=== PATIENT | male | born 1950 | race Caucasian/White ===

== ENCOUNTER 2019-06-25 05:27 | Inpatient (IN) | payer MEDICARE ==
[2019-06-25] MEDS ORDERED: Nitroglycerin 0.4 MG TAB 1 EACH ONE (05:57)
[2019-06-25] MEDS ORDERED: Nitroglycerin 2% Ointment 1 INCH/1 GM Packet ONE (05:57)
[2019-06-25] MEDS ORDERED: Nitroglycerin 0.4 MG TAB (25 Tab Bottle) ONE (07:34)
[2019-06-25 07:47] VITALS: BMI 23.5
[2019-06-25 08:57] LABS: Troponin I 0.057 ng/mL (< 0.028)
[2019-06-25] MEDS ORDERED: Acetaminophen 325 MG TAB PO PRN (09:10)
[2019-06-25] MEDS ORDERED: Pantoprazole 40 MG VIAL IVP SCH (09:30)
[2019-06-25] MEDS: Morphine 4 MG/ML VIAL SLOW IVP PRN ×3 (09:30→21:06)
[2019-06-25] MEDS ORDERED: hydrALAZINE 20 MG/ML VIAL SLOW IVP PRN (09:56)
[2019-06-25 10:14] LABS: Cardiac Risk 6.1 (Less than 4.5)
[2019-06-25] MEDS ORDERED: Lisinopril 20 MG TAB PO SCH (10:30)
[2019-06-25] MEDS ORDERED: Enoxaparin Sodium 80 MG/0.8 ML SYRINGE SC SCH (10:55)
[2019-06-25] MEDS ORDERED: Communication Order-Pharmacy FS SCH (11:00)
[2019-06-25 11:24] LABS: Hemoglobin A1c 6.1 % (4.0-6.0)
[2019-06-25] MEDS: Fentanyl 100 MCG/2 ML VIAL SLOW IVP PRN ×2 (12:11→18:36)
--- NOTE | 2019-06-25 12:36 | CON ---
DATE OF CONSULTATION: 06/25/2019 REASON FOR CONSULTATION: Acute coronary syndrome, unstable angina. HISTORY OF PRESENT ILLNESS: Mr. Martin is a gentleman with a long history of chest pain and pressure. He says on a very frequent basis. He has anginal chest pains at rest, which he can usually get to go away taking medication. Last night, however, he had the pain, it did not seem to want to go away, came here to the emergency room. This is a longstanding problem, he tells me. The patient otherwise states he had stents placed in one coronary artery at least 2 stents "overlapping." He does not know the vessel or did not tell me which vessel he thinks it is, but he said it was only done in one vessel, that was in [facility]. He said he had a cardiac catheterization done, but it has been many years since that was done. He has not seen a office clin asst in many years. The patient is not taking statins. He thinks they cause diabetes. He does not take aspirin as he said that makes him bruised too much. He continues to smoke daily one after one pack cigarettes per day, he tells me. MEDICATIONS: Nitroglycerin and isosorbide. ALLERGIES: OXYCODONE, NALOXONE, PENTAZOCINE. SOCIAL HISTORY: He continues to smoke. REVIEW OF SYSTEMS: CONSTITUTIONAL: No significant weight gain or loss. VISION: No changes. HEARING: No changes. PULMONARY: No cough or wheezing. GASTROINTESTINAL: No nausea, vomiting, or diarrhea. SKIN: No rashes. FAMILY HISTORY: Noncontributory. PHYSICAL EXAMINATION: GENERAL: This is a 68-year-old thin gentleman, states he still has some mild discomfort in his chest, but it is improved. VITAL SIGNS: Blood pressure is 170/90, pulse 68 and regular. LUNGS: Clear. CARDIAC: Normal S1, normal S2. ABDOMEN: Soft, nontender. EXTREMITIES: Warm and dry. No clubbing or cyanosis. Good edema. Good peripheral pulses in his feet. PERTINENT LABORATORY DATA: LDL cholesterol is 133. Troponin was less than 0.010, but the followup is 0.057. EKG shows no acute changes. ASSESSMENT AND PLAN: 1. Acute coronary syndrome, unstable angina. 2. Continue smoking. 3. Hypercholesterolemia, not on statins. 4. Coronary artery disease, not on aspirin. 5. Previous stent implantation. 6. Long history of smoking, but continues to smoke. Not taking aspirin "because it makes him bruised too much". Discussed with this gentleman in all likely he probably has multivessel coronary artery disease, may well need coronary artery bypass grafting. The patient is resistant to take statins, he is so far not agreed to do so. He does not indicate that he would even be willing to take long-term anti-platelet drugs. It is unclear at this point. We will reassess this with him. The patient may need surgical therapy. We will give subcutaneous Lovenox, HERMILO inhibitors, and statins as he will take them, but tentatively planned cardiac catheterization Thursday morning. Discussed risk of stroke, heart attack, loss of blood supply to leg or kidney, vessel perforation, stent thrombosis, stent restenosis. The patient understands well and agrees to proceed. He says he would be amenable to bypass surgery if that is indicated. Job ID: [id number]
--- NOTE | 2019-06-25 12:48 | CT ---
CT PULMONARY ANGIOGRAM WITH IV CONTRAST AND 3D POST PROCESSING: HISTORY: Chest pain. Elevated D-dimer. FINDINGS: There is good contrast opacification of the pulmonary arterial vasculature to suggest pulmonary embol ism. The thoracic aorta is well opacified without aneurysm or dissection. No pleural or pericardial effusions are seen. No pneumothoraces or focal areas of consolidation are i dentified. Chronic changes are seen with basilar dominance. Degenerative changes are present in the s pine. IMPRESSION: No CT evidence of pulmonary embolism. POS: BILLIE
--- NOTE | 2019-06-25 17:05 | HP ---
CHIEF COMPLAINT: Chest pain. HISTORY OF PRESENT ILLNESS: The patient is a 68-year-old male with history of CAD, status post 3 stents back in 2006, who presents to the hospital with complaints of chest pain on and off for the past few days. The patient stated that his chest pain occurs after working and it is a burning sensation that radiates down his both arms. The patient states that normally he takes either nitro or isosorbide, which helps relieve his pain. However, at this time, he had no pain relief, so he came into the ER for further evaluation. The patient denies any fevers or chills, any nausea, vomiting, or diarrhea. He has not had any recent studies at this facility at the [place]. PAST MEDICAL HISTORY: 1. He has a history of ulcer. 2. Liver fibrosis, unclear. 3. Skin cancer. 4. Hypercholesteremia. 5. CAD. PAST SURGICAL HISTORY: Appendectomy, cholecystectomy, and skin cancer removal. SOCIAL HISTORY: He continues to smoke a pack a day. No alcohol use. No drug use. He is a full code. Lives with his family. FAMILY HISTORY: Denies any history of heart disease. ALLERGIES: NALOXONE AND OXYCODONE AND PENTAZOCINE. MEDICATIONS: He takes only isosorbide, no aspirin, no statin. REVIEW OF SYSTEMS: All negative except for the ones mentioned above in the HPI. PHYSICAL EXAMINATION: VITAL SIGNS: As of the following; temperature of 98.1, pulse 67, respiratory rate 20, oxygen saturation 97% on room air, and blood pressure 126/65. GENERAL: He is awake, alert, and oriented x3. Does not appear in distress. HEENT: Normocephalic, atraumatic. Pupils are equal reactive to light. NECK: No lymphadenopathy noted. LUNGS: Clear to auscultation. No rhonchi or wheezes noted. CARDIOVASCULAR: S1 and S2 present. No murmurs, rubs, or gallops. ABDOMEN: Soft and nontender. Bowel sounds are present x2. EXTREMITIES: No edema. Pedal pulses are present x2. NEURO: No focal deficits noted. SKIN: No cuts, lesions, or bruises noted. He does have significant tattoo all around. LABORATORY RESULTS: As of the following; his D-dimer was high as 0.63. Chemistry, hemoglobin A1c of 6.1. Triglycerides of 187, cholesterol of 206, LDL of 133, and HDL of 34. His BUN was 13, creatinine of 0.88, sodium of 139, and potassium of 4.4. Troponin initially was negative, then trended up to the indeterminate range. EKG did not have some nonspecific T-wave changes. Hematology; WBCs of 14.7, hemoglobin of 16.7, hematocrit of 47.9, and platelets of 202. IMAGING DATA: Chest x-ray, no acute abnormalities. ASSESSMENT AND PLAN: The patient is a 68-year-old male, who presents to the hospital with chest pain. 1. Chest pain, possibly secondary to unstable angina versus non-ST elevation myocardial infarction. We will trend his troponins and Cardiology has been consulted. The patient will need possible cardiac cath versus stress test. However, given his symptoms and he has had no workup for a very long time, I believe cardiac cath is inappropriate. We will put the patient on aspirin and statin. Also subcu Lovenox and continue to monitor. 2. Hypertension. When the patient came into the hospital, his blood pressure was in the 170s. I will start him on a low-dose beta-dylon and lisinopril and continue to monitor. 3. Coronary artery disease. Again, the patient will be continued on his aspirin and Plavix. 4. Deep venous thrombosis prophylaxis. We will put the patient on SCDs since he is already on Lovenox. Job ID: [id number]
[2019-06-25] MEDS: Atorvastatin Calcium 40 MG TAB PO SCH (21:03)
[2019-06-25] MEDS: Metoprolol Tartrate 25 MG TAB PO SCH (21:03)
[2019-06-25] MEDS: Pantoprazole 40 MG VIAL IVP SCH (21:04)
[2019-06-25] MEDS: Sodium Chloride 0.9% (PF) 10 ML VIAL FS PRN (21:04)
[2019-06-26] MEDS: Fentanyl 100 MCG/2 ML VIAL SLOW IVP PRN ×2 (00:53→06:40)
[2019-06-26] MEDS: Morphine 4 MG/ML VIAL SLOW IVP PRN ×4 (03:32→17:24)
[2019-06-26 06:16] LABS: #Basophils 0.1 thou/uL (0.0-0.2); #Eosinphils 0.7 thou/uL (0.0-0.7); #Lymphocytes 4.4 thou/uL (1.20-3.40); #Monocytes 0.9 thou/uL (0.11-0.59); %Basophils 1.1 % (0.0-1.0); %Lymphocytes 36.3 % (21.0-51.0); %Monocytes 7.4 % (0.0-10.0); %Neutrophils 49.2 % (42.0-75.0); Hemoglobin 16.9 g/dL (14.0-18.0); Mean Corpuscular Hemoglobin 34.5 pg (27.0-31.0); Mean Corpuscular Volume 98.6 fL (78.0-98.0); Platelet Count 205 thou/uL (130-400); Red Blood Cell (RBC) Count 4.91 mill/uL (4.70-6.10); White Blood Cell (WBC) Count 12.2 thou/uL (4.8-10.8)
[2019-06-26 06:44] LABS: Anion Gap 12 mmol/L (10-20); BUN (Urea Nitrogen) 11 mg/dL (8.4-25.7); Calc. Creatinine Clearance 71 mL/min (70-130); Calcium 9.2 mg/dL (7.8-10.44); Carbon Dioxide 25 mmol/L (23-31); Chloride 102 mmol/L (98-107); Estimated GFR-MDRD 80; Glucose 128 mg/dL (80-115); Potassium 4.4 mmol/L (3.5-5.1); Sodium 135 mmol/L (136-145)
[2019-06-26] MEDS: Pantoprazole 40 MG VIAL IVP SCH ×2 (08:39→22:00)
[2019-06-26] MEDS: Sodium Chloride 0.9% (PF) 10 ML VIAL FS PRN (08:39)
[2019-06-26] MEDS: Lisinopril 20 MG TAB PO SCH (08:43)
[2019-06-26] MEDS: Aspirin 81 mg Enteric Coated Tablet PO SCH (08:43)
[2019-06-26] MEDS: Metoprolol Tartrate 25 MG TAB PO SCH ×2 (08:43→21:59)
[2019-06-26] MEDS ORDERED: Enoxaparin Sodium 40 MG/0.4 ML SYRINGE SC SCH (09:00)
--- NOTE | 2019-06-26 12:54 | PDOC.HOSPP ---
- Subjective Encounter Date: 06/26/19 Encounter Time: 10:00 Subjective: pt up in bed has cp at times describes it at burning. - Objective Vital Signs & Weight: Vital Signs (12 hours) Temp Pulse Resp BP BP Pulse Ox 06/26/19 12:00 99.2 F 60 14 116/60 96 06/26/19 08:43 121/69 06/26/19 08:00 98.0 F 62 12 121/69 95 06/26/19 07:35 95 06/26/19 04:00 98.6 F 56 L 16 97/52 L 92 L Weight Weight 144 lb 11.2 oz I&O: 06/25/19 06/26/19 06/27/19 06:59 06:59 06:59 Intake Total 480 Output Total 400 Balance 80 Result Diagrams: 06/26/19 05:43 06/26/19 05:43 Hospitalist ROS - Review of Systems Respiratory: denies: cough, dry, shortness of breath, hemoptysis, SOB with excertion, pleuritic pain, sputum, wheezing, other Cardiovascular: denies: chest pain, palpitations, orthopnea, paroxysmal noc. dyspnea, edema, light headedness, other Gastrointestinal: denies: nausea, vomiting, abdominal pain, diarrhea, constipation, melena, hematochezia, other - Medication Medications: Active Medications Generic Name Dose Route Start Last Admin Trade Name Freq PRN Reason Stop Dose Admin Aspirin 81 mg 06/26/19 09:00 06/26/19 08:43 Ecotrin PO 81 mg DAILY PEDRO Administration Atorvastatin Calcium 40 mg 06/25/19 21:00 06/25/19 21:03 Lipitor PO 40 mg HS PEDRO Administration Fentanyl 50 mcg 06/25/19 11:17 06/26/19 06:40 Sublimaze SLOW IVP 50 mcg Q6H PRN Administration Pain Lisinopril 20 mg 06/26/19 09:00 06/26/19 08:43 Zestril PO 20 mg DAILY PEDRO Administration Metoprolol Tartrate 25 mg 06/25/19 21:00 06/26/19 08:43 Lopressor PO 25 mg BID PEDRO Administration Morphine Sulfate 4 mg 06/25/19 09:13 06/26/19 08:40 Morphine SLOW IVP 4 mg Q4H PRN Administration Chest Pain Pantoprazole Sodium 40 mg 06/25/19 21:00 06/26/19 08:39 Protonix IVP 40 mg Q12HR PEDRO Administration Sodium Chloride 10 ml 06/25/19 09:22 06/26/19 08:39 Normal Saline Pf FS 10 ml PRN PRN Administration RECONSTITUTION - Exam Neck: negative: supple, symmetric, no JVD, no thyromegaly, no lymphadenopathy, no carotid bruit, JVD Heart: negative: RRR, no murmur, no gallops, no rubs, normal peripheral pulses, irregular, diminshed peripheral pulses, murmur present, II/IV, III/IV Respiratory: negative: CTAB, no wheezes, no rales, no ronchi, normal chest expansion, no tachypnea, normal percussion, rales, rhonchi, tachypneic, wheezes Hosp A/P (1) Unstable angina Status: Acute (2) CAD (coronary artery disease) Code(s): I25.10 - ATHSCL HEART DISEASE OF [place] CORONARY ARTERY W/O ANG PCTRS Status: Acute (3) HTN (hypertension) Code(s): I10 - ESSENTIAL (PRIMARY) HYPERTENSION Status: Acute - Plan pt on asa/statin and lovonx. pt to get a cath in am. pt does not want nitro for his chest pain he feels morphine has been helping him.
[2019-06-26] MEDS: Nitroglycerin 0.4 MG TAB (25 Tab Bottle) SL PRN (21:32)
[2019-06-26] MEDS: Atorvastatin Calcium 40 MG TAB PO SCH (21:59)
[2019-06-27] MEDS: Nitroglycerin 0.4 MG TAB (25 Tab Bottle) SL PRN ×2 (02:53→03:01)
[2019-06-27] MEDS: Lisinopril 20 MG TAB PO SCH (05:54)
[2019-06-27] MEDS: Aspirin 81 mg Enteric Coated Tablet PO SCH (05:54)
[2019-06-27] MEDS: Metoprolol Tartrate 25 MG TAB PO SCH ×2 (05:54→21:16)
[2019-06-27] MEDS: Pantoprazole 40 MG VIAL IVP SCH ×2 (05:55→21:16)
[2019-06-27] MEDS: Sodium Chloride 0.9% 1,000 ML IV SCH (05:56)
[2019-06-27] MEDS: Sodium Chloride 0.9% (PF) 10 ML VIAL FS PRN ×2 (05:56→21:16)
[2019-06-27] MEDS ORDERED: Diazepam 5 MG TAB PO SCH (06:00)
[2019-06-27] MEDS ORDERED: Lidocaine 1% (PF) 30 ML VIAL ONE (07:55)
[2019-06-27] MEDS ORDERED: Fentanyl 100 MCG/2 ML VIAL ONE (08:36)
[2019-06-27] MEDS ORDERED: Midazolam HCl 2 mg/2 ml Vial ONE (08:36)
[2019-06-27] MEDS ORDERED: Nitroglycerin 100MG/250ML BOT 250 ML ONE (08:47)
[2019-06-27] MEDS ORDERED: Nitroglycerin 0.4 MG TAB (25 Tab Bottle) SL PRN (09:25)
[2019-06-27] MEDS ORDERED: Sodium Chloride 0.9% 200 ML IV PRN (09:25)
--- NOTE | 2019-06-27 11:12 | PDOC.HOSPP ---
- Subjective Encounter Date: 06/27/19 Encounter Time: 10:30 Subjective: pt up in bed post cath. - Objective Vital Signs & Weight: Vital Signs (12 hours) Temp Pulse Resp BP BP Pulse Ox 06/27/19 08:00 97.3 F L 56 L 16 110/57 L 95 06/27/19 05:54 121/69 06/27/19 04:00 98.7 F 67 18 99/56 L 94 L 06/26/19 23:28 100.1 F H Weight Weight 144 lb 11.2 oz I&O: 06/26/19 06/27/19 06/28/19 06:59 06:59 06:59 Intake Total 480 Output Total 400 Balance 80 Result Diagrams: 06/26/19 05:43 06/26/19 05:43 Hospitalist ROS - Review of Systems Respiratory: denies: cough, dry, shortness of breath, hemoptysis, SOB with excertion, pleuritic pain, sputum, wheezing, other Cardiovascular: denies: chest pain, palpitations, orthopnea, paroxysmal noc. dyspnea, edema, light headedness, other Gastrointestinal: denies: nausea, vomiting, abdominal pain, diarrhea, constipation, melena, hematochezia, other - Medication Medications: Active Medications Generic Name Dose Route Start Last Admin Trade Name Freq PRN Reason Stop Dose Admin Aspirin 81 mg 06/26/19 09:00 06/27/19 05:54 Ecotrin PO 81 mg DAILY PEDRO Administration Atorvastatin Calcium 40 mg 06/25/19 21:00 06/26/19 21:59 Lipitor PO 40 mg HS PEDRO Administration Fentanyl 50 mcg 06/25/19 11:17 06/26/19 06:40 Sublimaze SLOW IVP 50 mcg Q6H PRN Administration Pain Sodium Chloride 1,000 mls @ 100 mls/hr 06/27/19 06:00 06/27/19 05:56 Normal Saline 0.9% IV 1,000 mls .Q10H PEDRO Administration Lisinopril 20 mg 06/26/19 09:00 06/27/19 05:54 Zestril PO 20 mg DAILY PEDRO Administration Metoprolol Tartrate 25 mg 06/25/19 21:00 06/27/19 05:54 Lopressor PO 25 mg BID PEDRO Administration Morphine Sulfate 4 mg 06/25/19 09:13 06/26/19 17:24 Morphine SLOW IVP 4 mg Q4H PRN Administration Chest Pain Pantoprazole Sodium 40 mg 06/25/19 21:00 06/27/19 05:55 Protonix IVP 40 mg Q12HR PEDRO Administration Sodium Chloride 10 ml 06/25/19 09:22 06/27/19 05:56 Normal Saline Pf FS 10 ml PRN PRN Administration RECONSTITUTION - Exam ENT: negative: normocephalic atraumatic, no oropharyngeal lesions, moist mucosa , dry oral mucosa Neck: supple, symmetric, no JVD, no thyromegaly Heart: RRR, no murmur, no gallops Gastrointestinal: soft, non-tender, non-distended Extremities: no cyanosis Extremities - other findings: pedal pulse present Hosp A/P (1) Unstable angina Status: Acute (2) CAD (coronary artery disease) Code(s): I25.10 - ATHSCL HEART DISEASE OF [place] CORONARY ARTERY W/O ANG PCTRS Status: Acute (3) HTN (hypertension) Code(s): I10 - ESSENTIAL (PRIMARY) HYPERTENSION Status: Acute - Plan pt on asa/statin and lovonx. pt to get a cath in am. pt does not want nitro for his chest pain he feels morphine has been helping him. 06/27 s/p cardiac cath, report pending. will continue current treatment.
[2019-06-27 13:57] LABS: ALT (SGPT) 20 U/L (8-55); AST (SGOT) 27 U/L (5-34); Albumin 3.7 g/dL (3.4-4.8); Alkaline Phosphatase 77 U/L (40-110); Bilirubin, Direct 0.4 mg/dL (0.1-0.3); Bilirubin, Total 0.8 mg/dL (0.2-1.2); Protein, Total 6.8 g/dL (5.8-8.1)
--- NOTE | 2019-06-27 14:57 | CON ---
DATE OF CONSULTATION: 06/27/2019 REASON FOR CONSULTATION: Evaluate the patient with three-vessel coronary artery disease with coronary artery bypass grafting. HISTORY OF PRESENT ILLNESS: Mr. Martin is a 68-year-old gentleman, who approximately 12 years ago was seen in [facility], had a stent placed in his LAD. He had a followup angiography after that for continued anginal symptoms, which the patient states was normal. His had moved here. He has not seen a seat cover maker here. He has not taken any of the prescribed medicines after his stent since he has been here. He has been seen in the [place] and has been prescribed nitroglycerin and isosorbide as chronic medications. The patient is continued to smoke a pack of cigarettes a day. The patient has angina, both at rest and with activity. He says he can get the symptoms go away by taking nitrates. He has a longstanding history of hepatic "fibrosis." He has had hepatitis C and has taken the antiviral agent for hepatitis C and has been cured as per his [place] physician. He does not have shortness of breath at home. PAST MEDICAL HISTORY: Coronary artery disease. PAST SURGICAL HISTORY: None. CURRENT MEDICATIONS: 1. Nitroglycerin. 2. Isosorbide. ALLERGIES: 1. OXYCODONE. 2. NALOXONE. 3. PENTAZOCINE. SOCIAL HISTORY: He is . He does not work. He continues to use approximately a pack of cigarettes a day. REVIEW OF SYSTEMS: A 10-point review of systems is performed and is negative except as above. PHYSICAL EXAMINATION: GENERAL: This is a diminutive, elderly-appearing gentleman, resting comfortably post catheterization. VITAL SIGNS: Height is 5 feet 7 inches, weight is 144 pounds. BSA is 1.76. Temperature is 97.3, pulse is 56 and regular, blood pressure is 110/57. HEENT: Sclerae nonicteric. Pupils are equal and round bilaterally. NECK: Supple. He has no carotid bruits. CHEST: Clear bilaterally. HEART: Rhythm is regular. ABDOMEN: Soft and nontender. EXTREMITIES: No cyanosis, clubbing, or edema. VASCULAR: Palpable carotid, radial, femoral, and dorsalis pedis pulses bilaterally. PSYCHIATRIC: He is awake, alert, and oriented to person, place, and time. LABORATORY DATA: Of note, potassium is 4.4, creatinine is 0.94. His total cholesterol was 206 with an LDL of 133 and an HDL of 34, triglycerides are 197. His peak troponin was 0.05, hemoglobin is 16.9, platelet count is 205,000. ASSESSMENT AND PLAN: A 68-year-old gentleman, who is post cath and has severe three-vessel disease on his cardiac catheterization. Potential bypassable targets included LAD, high diagonal, which is the very small artery PDA and posterolateral branch. I have had a long discussion with him. He tends to talk in circles and is very angry right now. He apparently was told at his last catheterization that everything was fine and he had no disease, although he continues to have angina. He has not been able to associate his angina with coronary artery disease. He has not been able to associate the stents that he has been placed with coronary artery disease. He has chosen not to take any of the medications, which were prescribed to him in [place]. They all have severe side effects that he is unable to come to bank officer with. He continues to smoke and does not see any association between tobacco abuse and his coronary artery disease and angina. I have done my best to talk him through his disease process and the implications of his continued noncompliance and abuse. I am not sure that he is able to at this point understand what his problems are and the subsequent symptomatology in their association with his coronary artery disease. I have recommended that he have bypass surgery. I have described the surgery in detail to him. I am not sure he will consent for surgery at this point. I will follow up with him in a day or two to see where he sets. Job ID: [id number]
--- NOTE | 2019-06-27 15:29 | ULT ---
CAROTID ULTRASOUND WITH DOPPLER: Date: 06/27/19 HISTORY: Pre CABG evaluation. COMPARISON: None. TECHNIQUE: Tobias scale, color flow, Doppler imaging, and spectral waveform analysis performed in the carotid and vertebral arteries. FINDINGS: RIGHT CAROTID: There is a combination of calcified and noncalcified plaque in the carotid bifurcation and proximal i nternal carotid artery. Peak systolic velocity of the common carotid artery is 81 cm/sec. Peak systol ic velocity of the internal carotid artery is 83 cm/sec. Systolic ICA/CCA ratio is 1.0. LEFT CAROTID: There is a combination of calcified and noncalcified plaque in the carotid bifurcation and proximal i nternal carotid artery. There is additional calcified plaque at the origin of the external carotid ar bianca. Peak systolic velocity of the common carotid artery is 89 cm/sec. Peak systolic velocity of the internal carotid artery is 77 cm/sec. Systolic ICA/CCA ratio is 0.86. Antegrade flow in bilateral vertebral arteries. IMPRESSION: No sonographic evidence of hemodynamically significant stenosis. POS: OFF
[2019-06-27] MEDS: Atorvastatin Calcium 40 MG TAB PO SCH (21:15)
[2019-06-28] MEDS: Sodium Chloride 0.9% 1,000 ML IV SCH (00:40)
[2019-06-28] MEDS ORDERED: Sodium Chloride 0.9% 10 ML ONE (08:35)
[2019-06-28] MEDS: Metoprolol Tartrate 25 MG TAB PO SCH (09:55)
[2019-06-28] MEDS: Lisinopril 20 MG TAB PO SCH (09:55)
[2019-06-28] MEDS: Aspirin 81 mg Enteric Coated Tablet PO SCH (09:55)
[2019-06-28] MEDS: Pantoprazole 40 MG VIAL IVP SCH (09:56)
[2019-06-28 12:23] VITALS: BP 118/62; TEMP 98.3
--- NOTE | 2019-06-28 21:58 | DIS ---
DATE OF ADMISSION: 06/25/2019 DATE OF DISCHARGE: 06/28/2019 DISCHARGE DIAGNOSES: As of the followin. Coronary artery disease. 2. Hypertension. 3. Smoking. 4. Hyperlipidemia. HOSPITAL COURSE: The patient is a 68-year-old male, who initially presented to the hospital with burning-like chest pain, had been taking some isosorbide without any relief. Initially, he was seen by Cardiology, underwent a cardiac cath, which indicated multivessel disease at this time. A CV Surgery consultation was placed. He also had a CTA of the chest that did not indicate any acute pulmonary embolism. The patient after talking to CV Surgery, he decided that for right now, he does not want to pursue any surgery. I also talked with him in detail that this could potentially cause him to have and something that not to be prolonged for very long. However, patient states that he feels really tired, has not slept, wants to go home and think about it, sleep, and then he has the CV surgeon's card and he will call him when it is convenient for him. The patient understands the risks, which could be even . I have asked him if he discuss this with his , the patient stated that he did. HOME MEDICATIONS: His home medications will be as of the followin. Nitroglycerin 0.4 q.5 minutes as needed. 2. Isosorbide as needed. 3. Lisinopril 10 mg daily. 4. Atorvastatin 40 mg daily. 5. Aspirin 81 mg daily. Of note, the patient has not been even taking his aspirin and statin. This is even from before when he had 3 stents put in. PHYSICAL EXAMINATION: VITAL SIGNS: 98.1, 66, 16, 95% on room air, 122/67. GENERAL: He is awake, alert, and oriented x3. He does not appear in distress. CV: S1, S2 present. No murmurs, rubs, or gallops. ABDOMEN: Soft and nontender. Bowel sounds are present x2. Again, he will be discharged home. He will follow up with his primary and also CV Surgery, number has been provided, and I have called his medications to his pharmacy. Job ID: [id number]
== END 2019-06-28 14:45 | disposition home or self-care (01) | DRG 287 ==
LOC: ERS 05:27 → 2SW 05:58 → OBSVTOIN 05:58 → 2NO 20:15
PROVIDERS: ADMIT Internal Medicine; ATTEND Internal Medicine
PROC: 4A023N7 Measurement of Cardiac Sampling and Pressure, Left Heart, Percutaneous Approach (ICD-10-PCS; principal; 2019-06-25)
PROC: B2111ZZ Fluoroscopy of Multiple Coronary Arteries using Low Osmolar Contrast (ICD-10-PCS; 2019-06-25)
DX: I25.110 Atherosclerotic heart disease of native coronary artery with unstable angina pectoris (principal); E78.00 Pure hypercholesterolemia, unspecified; F17.210 Nicotine dependence, cigarettes, uncomplicated; Z88.5 Allergy status to narcotic agent; Z88.8 Allergy status to other drugs, medicaments and biological substances; Z90.49 Acquired absence of other specified parts of digestive tract; Z85.828 Personal history of other malignant neoplasm of skin; Z95.5 Presence of coronary angioplasty implant and graft
CPT/HCPCS: 36415; 71275; 76942; 80048; 80061; 80076; 83036; 83735; 85025; 85379; 93005; 93306; 93454; 93880; 94760; 99152; C1769; C9113; J1644; J1650; J2001; J2250; J2270; J3010

== ENCOUNTER 2019-09-29 08:53 | Inpatient (IN) | payer MEDICARE, OTHER ==
[2019-09-29 10:13] LABS: #Basophils 0.1 thou/uL (0.0-0.2); #Eosinphils 0.6 thou/uL (0.0-0.7); #Lymphocytes 3.6 thou/uL (1.20-3.40); #Monocytes 0.6 thou/uL (0.11-0.59); #Neutrophils 4.9 thou/uL (1.40-6.50); %Eosinophils 6.4 % (0.0-10.0); %Lymphocytes 36.6 % (21.0-51.0); %Monocytes 5.6 % (0.0-10.0); %Neutrophils 50.4 % (42.0-75.0); Hemoglobin 15.7 g/dL (14.0-18.0); Mean Corpuscular HGB CONC 34.8 g/dL (32.0-36.0); Mean Corpuscular Volume 97.8 fL (78.0-98.0); Mean Platelet Volume 8.3 fL (7.4-10.4); Platelet Count 206 thou/uL (130-400); RBC Distribution Width 12.2 % (11.5-14.5); Red Blood Cell (RBC) Count 4.62 mill/uL (4.70-6.10); White Blood Cell (WBC) Count 9.7 thou/uL (4.8-10.8)
[2019-09-29 10:28] LABS: ALT (SGPT) 34 U/L (8-55); AST (SGOT) 24 U/L (5-34); Albumin 4.3 g/dL (3.4-4.8); Alkaline Phosphatase 75 U/L (40-110); Anion Gap 14 mmol/L (10-20); BUN (Urea Nitrogen) 15 mg/dL (8.4-25.7); Bilirubin, Total 0.5 mg/dL (0.2-1.2); Calc. Creatinine Clearance 0 mL/min (70-130); Calcium 9.9 mg/dL (7.8-10.44); Carbon Dioxide 24 mmol/L (23-31); Chloride 106 mmol/L (98-107); Estimated GFR-MDRD 87; Globulin 3.2 g/dL (2.4-3.5); Glucose 136 mg/dL (80-115); Lipase 17 U/L (8-78); Potassium 4.5 mmol/L (3.5-5.1); Protein, Total 7.5 g/dL (5.8-8.1); Sodium 139 mmol/L (136-145)
[2019-09-29] MEDS ORDERED: Ondansetron PF 4 MG/2 ML Vial ONE (10:37)
[2019-09-29] MEDS ORDERED: Pantoprazole 40 MG VIAL ONE ×2 (10:46→11:08)
[2019-09-29] MEDS ORDERED: Mag-Al 1200 mg/1200 mg/30 ML UDCUP ONE (11:05)
[2019-09-29] MEDS ORDERED: Lidocaine Viscous Sol 2% 15 ml UD Cup ONE (11:05)
[2019-09-29] MEDS ORDERED: Nitroglycerin 2% Ointment 1 INCH/1 GM Packet ONE (11:45)
[2019-09-29] MEDS ORDERED: Aspirin Chewable 81 MG TAB ONE (11:45)
--- NOTE | 2019-09-29 11:50 | RAD ---
EXAM: Single view of the chest HISTORY: Epigastric abdominal pain COMPARISON: 06/25/2019 FINDINGS: Single view of the chest shows a normal sized cardiomediastinal silhouette. There is no sheela dence of consolidation, mass, or pleural effusion. The bones are unremarkable. IMPRESSION: No evidence of acute cardiopulmonary disease
[2019-09-29 12:06] LABS: Bilirubin Negative (Negative); Blood, Urine Negative (Negative); Clarity Clear (Clear); Glucose, Urine (Dipstick) Normal (Negative); Leukocyte Negative Leu/uL (Negative); Nitrite Negative (Negative); Protein, Urine (Dipstick) Negative (Neg-Trace); Urobilinogen Normal mg/dL (Less than 2)
[2019-09-29 18:44] LABS: Prothrombin Time 13.1 SEC (12.0-14.7)
[2019-09-29 18:45] LABS: PTT 27.7 SEC (22.9-36.1)
[2019-09-29] MEDS ORDERED: Enoxaparin Sodium 80 MG/0.8 ML SYRINGE ONE (19:02)
[2019-09-29 19:05] LABS: Troponin I Less than 0.010 ng/mL (< 0.028)
[2019-09-29] MEDS ORDERED: Acetaminophen 325 MG TAB PO PRN (19:22)
[2019-09-29] MEDS ORDERED: Acetaminophen 650 MG Suppository PR PRN (19:22)
[2019-09-29] MEDS ORDERED: Nitroglycerin 0.4 MG TAB (25 Tab Bottle) SL PRN (19:30)
[2019-09-29] MEDS ORDERED: Lidocaine 2% Viscous Solution 10 ML, Aluminum & Magnesium Hydroxide 30 ML SSW SCH (19:45)
--- NOTE | 2019-09-29 20:32 | HP ---
PRIMARY CARE PROVIDER: Dr. Joseph Davis at [facility]. CHIEF COMPLAINT: Epigastric pain. HISTORY OF PRESENT ILLNESS: Mr. Martin is a pleasant 69-year-old gentleman, who was seen at [facility] on September 29, 2019. He underwent cardiac catheterization on June 27, 2019. He was found to have severe 2-vessel coronary artery disease with diffuse in-stent restenosis of LAD stent, small circumflex coronary, 80% right iliac stenosis, left subclavian with moderate diffuse atherosclerosis. He was recommended coronary artery bypass graft. He is scheduled to undergo coronary artery bypass graft on October 17, 2019. Today, he started having epigastric discomfort. He describes it as epigastric pain, on and off, nonradiating, no known aggravating or relieving factors. He also describes a bloating sensation. He denies cough, shortness of breath, diaphoresis, or vomiting. He denies any pain in the chest today. He does report that his abdominal discomfort is similar to what he had prior to myocardial infarction in the past. REVIEW OF SYSTEMS: All systems were reviewed and found to be negative except for the pertinent positives mentioned above. PAST MEDICAL HISTORY: Coronary artery disease, myocardial infarction, peptic ulcer disease, skin cancer, and dyslipidemia. PAST SURGICAL HISTORY: Appendectomy, cholecystectomy, skin cancer removal, and PCI with coronary stents. SOCIAL HISTORY: The patient quit smoking 3 months ago. He denies any alcohol use or recreational drug use. FAMILY HISTORY: Myocardial infarction in his father. ALLERGIES: NALOXONE, OXYCODONE, PENTAZOCINE. CURRENT MEDICATIONS: 1. Isosorbide mononitrate 120 mg daily. 2. Nitroglycerin 0.4 mg as needed. 3. Aspirin 81 mg daily. 4. Atorvastatin 40 mg at bedtime. 5. Lisinopril 10 mg daily. 6. Omeprazole 20 mg daily. PHYSICAL EXAMINATION: GENERAL: On examination, Mr. Martin is awake and alert, not in acute distress. VITAL SIGNS: Blood pressure is 142/67, pulse 63, respiratory rate 12, and oxygen saturation 99% on room air. He is afebrile. EYES: No scleral icterus. No conjunctival pallor. ENT: Moist mucosal membranes. No oropharyngeal erythema or exudates. NECK: Supple, nontender. Trachea is midline. RESPIRATORY: Accessory muscles of breathing are not active. Chest wall movements are symmetric bilaterally. Lungs are clear to auscultation without wheeze, rhonchi, or crepitations. CARDIOVASCULAR: S1 and S2 are heard, regular. Peripheral pulses palpable. ABDOMEN: Soft, nontender. Bowel sounds are heard. NEUROLOGIC: Cranial nerves 2 through 12 are intact. MUSCULOSKELETAL: Power is 5/5 in all 4 extremities. SKIN: No rashes or subcutaneous nodules. LYMPHATIC: No cervical lymphadenopathy. PSYCHIATRIC: Normal mood. Normal affect. The patient is oriented to person, place, and time. LABORATORY DATA: Mr. Martin' labs and investigations were reviewed. I reviewed his electrocardiogram, which shows sinus bradycardia. No ST changes to suggest an acute coronary syndrome. I also reviewed his chest x-ray, which does not show any pulmonary infiltrates. He has an unremarkable comprehensive metabolic profile, normal lipase, normal troponin I x3, unremarkable CBC, INR 1.0, and normal urinalysis. ASSESSMENT AND PLAN: Mr. Martin is a pleasant 69-year-old gentleman, who was seen at [facility] on September 29, 2019. His problem list includes: 1. Epigastric pain: Mr. Martin reports epigastric pain. However, he also reports that the pain is similar to the pain he had prior to myocardial infarction. He has received one dose of therapeutic Lovenox. I will admit him to telemetry monitoring. I will also try a GI cocktail to see if it helps. Cardiology Service will be consulted for opinion and help with management. 2. Dyslipidemia: Continue statin. 3. History of peptic ulcer disease: I will continue him on PPI. 4. Coronary artery disease: Continue aspirin and statin. Please note that the patient reports that he tried Pepto-Bismol, omeprazole, nitroglycerin, and [place] at home without any relief of epigastric discomfort. Many thanks for allowing me to participate in your patient's care. Please feel free to contact me with any questions or concerns. LEVEL OF RISK: High. LEVEL OF COMPLEXITY: High. Job ID: [id number]
[2019-09-29] MEDS: Atorvastatin Calcium 40 MG TAB PO SCH (21:55)
[2019-09-29] MEDS ORDERED: Nitroglycerin 2% Ointment 1 INCH/1 GM Packet TOP SCH (23:45)
[2019-09-30 00:49] VITALS: BMI 23.9
[2019-09-30 04:30] LABS: #Basophils 0.1 thou/uL (0.0-0.2); #Eosinphils 0.6 thou/uL (0.0-0.7); #Lymphocytes 4.3 thou/uL (1.20-3.40); #Monocytes 0.6 thou/uL (0.11-0.59); %Eosinophils 5.3 % (0.0-10.0); %Lymphocytes 40.7 % (21.0-51.0); %Monocytes 5.7 % (0.0-10.0); %Neutrophils 47.3 % (42.0-75.0); Hemoglobin 14.7 g/dL (14.0-18.0); Mean Corpuscular HGB CONC 33.8 g/dL (32.0-36.0); Mean Corpuscular Hemoglobin 32.8 pg (27.0-31.0); Mean Corpuscular Volume 96.8 fL (78.0-98.0); Mean Platelet Volume 8.4 fL (7.4-10.4); Platelet Count 200 thou/uL (130-400); RBC Distribution Width 11.9 % (11.5-14.5); Red Blood Cell (RBC) Count 4.49 mill/uL (4.70-6.10); White Blood Cell (WBC) Count 10.5 thou/uL (4.8-10.8)
[2019-09-30 04:47] LABS: Anion Gap 12 mmol/L (10-20); BUN (Urea Nitrogen) 13 mg/dL (8.4-25.7); Calc. Creatinine Clearance 86 mL/min (70-130); Calcium 9.2 mg/dL (7.8-10.44); Carbon Dioxide 26 mmol/L (23-31); Chloride 105 mmol/L (98-107); Estimated GFR-MDRD Greater than 90; Glucose 130 mg/dL (80-115); Sodium 139 mmol/L (136-145)
[2019-09-30] MEDS: Aspirin 81 mg Enteric Coated Tablet PO SCH (08:45)
[2019-09-30] MEDS: Lisinopril 10 MG TAB PO SCH (08:45)
[2019-09-30] MEDS ORDERED: Zolpidem Tartrate 5 MG TAB PO PRN (11:20)
[2019-09-30] MEDS ORDERED: ALPRAZolam 0.25 MG TAB PO PRN (11:23)
[2019-09-30] MEDS ORDERED: ALPRAZolam 0.25 MG TAB PO SCH (11:30)
--- NOTE | 2019-09-30 12:37 | CON ---
DATE OF CONSULTATION: HISTORY OF PRESENT ILLNESS: Mr. Martin is a 69-year-old gentleman with history of diffuse coronary artery disease, who was scheduled for surgery. Yesterday, he had some sensation of "indigestion," he was worried this could be heart related. He came to the hospital, where he has been admitted here. The patient did undergo cardiac catheterization in June 2019. At that time, he did not wish to proceed with surgery immediately. The patient had predominantly epigastric discomfort yesterday. REVIEW OF SYSTEMS: CONSTITUTIONAL: No significant weight gain or loss. VISION: No changes. HEARING: No changes. PULMONARY: No cough or wheezing. GASTROINTESTINAL: No nausea, vomiting, or diarrhea. SKIN: No rashes. PAST MEDICAL HISTORY: 1. Coronary artery disease. 2. Previous stent implantation. SOCIAL HISTORY: Quit smoking 3 months ago. No alcohol. ALLERGIES: NALOXONE AND PENTAZOCINE. MEDICATIONS: 1. Isosorbide. 2. Nitroglycerin. 3. Aspirin. 4. Atorvastatin. 5. Lisinopril. 6. Omeprazole, but he takes omeprazole sporadically. PHYSICAL EXAMINATION: VITAL SIGNS: Blood pressure 128/66, pulse 62 and regular. LUNGS: Clear. CARDIAC: Normal S1, normal S2. ABDOMEN: Soft, nontender. EXTREMITIES: There is no edema. ASSESSMENT: 1. Severe coronary artery disease as outlined previously. 2. Epigastric pain of uncertain etiology. 3. Negative cardiac enzymes. PLAN: We will notify Dr. Hodges. The patient can likely go home later today to come back in for outpatient bypass surgery. Job ID: [id number]
[2019-09-30] MEDS: Sucralfate 1 GM TAB PO SCH ×2 (17:02→20:35)
[2019-09-30] MEDS ORDERED: Mag-Al 1200 mg/1200 mg/30 ML UDCUP PO PRN (18:11)
--- NOTE | 2019-09-30 18:19 | PRG ---
DATE OF SERVICE: 09/30/2019 Mr. Martin continues to complain of epigastric pain. He got some transient relief with Maalox. He was on pantoprazole started this morning. I talked to Dr. Varner, he will give him some a Carafate and consider GI consultation. May need upper endoscopy. Dr. Childress will be available this weekend if needed. I do not think the current pain hard in origin. He has normal cardiac enzymes x3 and his previous chest pain, which was anginal, was substernal pain. This is very different. It is epigastric pain. It sounds like potentially it is gastric in origin. He has had previous gallbladder removal. Job ID: [id number]
--- NOTE | 2019-09-30 19:13 | PDOC.HOSPP ---
- Subjective Encounter Date: 09/30/19 Encounter Time: 19:13 Subjective: Pt seen for followup re: epigastric pain. c/o anxiety, crying. - Objective Vital Signs & Weight: Vital Signs (12 hours) Temp Pulse Resp BP Pulse Ox 09/30/19 15:20 98.4 F 64 18 106/65 96 09/30/19 11:49 97.7 F 76 15 108/72 96 09/30/19 07:53 95 09/30/19 07:52 97.6 F 62 17 128/66 95 Weight Weight 152 lb 12.8 oz I&O: 09/29/19 09/30/19 10/01/19 06:59 06:59 06:59 Intake Total 360 720 Output Total 400 650 Balance -40 70 Result Diagrams: 09/30/19 03:52 09/30/19 03:52 Additional Labs: Labs and MARs reviewed by me EKG Reviewed by me: Yes (Tele; NSR) Hospitalist ROS - Review of Systems Constitutional: reports: other (anxiety). denies: fever, chills, sweats, weakness, malaise Respiratory: denies: cough, dry, shortness of breath, hemoptysis, SOB with excertion, pleuritic pain, sputum, wheezing Cardiovascular: denies: chest pain, palpitations, orthopnea, paroxysmal noc. dyspnea, edema, light headedness Gastrointestinal: reports: abdominal pain. denies: nausea, vomiting, diarrhea, constipation, melena, hematochezia Genitourinary: denies: dysuria, frequency, incontinence, hematuria, retention - Medication Medications: Active Medications Generic Name Dose Route Start Last Admin Trade Name Aurelioq PRN Reason Stop Dose Admin Acetaminophen 650 mg 09/29/19 19:22 09/30/19 00:28 Tylenol PO 650 mg Q4H PRN Administration Headache/Fever/Mild Pain (1-3) Al Hydroxide/Mg Hydroxide 30 ml 09/30/19 18:11 09/30/19 15:00 Maalox PO 30 ml Q6H PRN Administration Heartburn or Indigestion Aspirin 81 mg 09/30/19 09:00 09/30/19 08:45 Ecotrin PO 81 mg DAILY PEDRO Administration Atorvastatin Calcium 40 mg 09/29/19 21:00 09/29/19 21:55 Lipitor PO 40 mg HS PEDRO Administration Isosorbide Mononitrate 120 mg 09/30/19 09:00 09/30/19 08:48 Imdur PO 120 mg QAM PEDRO Administration Lisinopril 10 mg 09/30/19 09:00 09/30/19 08:45 Zestril PO 10 mg DAILY PEDRO Administration Pantoprazole Sodium 40 mg 09/30/19 09:00 09/30/19 08:45 Protonix PO 40 mg DAILY PEDRO Administration Sucralfate 1 gm 09/30/19 17:00 09/30/19 17:02 Carafate PO 1 gm ACHS PEDRO Administration - Exam General Appearance: NAD Eye: anicteric sclera Neck: supple, symmetric, no JVD, no thyromegaly Heart: RRR, no gallops, no rubs, normal peripheral pulses Respiratory: CTAB, no wheezes, no rales, no ronchi, normal chest expansion Gastrointestinal: soft, non-tender, non-distended, normal bowel sounds Extremities: no cyanosis Skin: no rashes Neurological: cranial nerve grossly intact Musculoskeletal: no muscle wasting Psychiatric: A&O x 3 Psychiatric - other findings: crying; anxious Hosp A/P (1) Epigastric pain Code(s): R10.13 - EPIGASTRIC PAIN Status: Acute (2) Anxiety Code(s): F41.9 - ANXIETY DISORDER, UNSPECIFIED Status: Chronic (3) Insomnia Code(s): G47.00 - INSOMNIA, UNSPECIFIED Status: Chronic (4) CAD (coronary artery disease) Code(s): I25.10 - ATHSCL HEART DISEASE OF [place] CORONARY ARTERY W/O ANG PCTRS Status: Chronic (5) HTN (hypertension) Code(s): I10 - ESSENTIAL (PRIMARY) HYPERTENSION Status: Chronic - Plan out of bed/ambulate, DVT proph w/lovenox, DVT proph w/SCDs Trial carafate, consult GI service for possible GI etiology to abdo pain. Pt has a h/o PUD. Pt reports chronic spells of anxiety. Trial xanax PRN. Also reports inability to sleep. Trial hypnotics. Troponins normal.
[2019-09-30] MEDS: Atorvastatin Calcium 40 MG TAB PO SCH (20:35)
[2019-10-01] MEDS: Sucralfate 1 GM TAB PO SCH ×2 (07:36→11:31)
[2019-10-01] MEDS ORDERED: Enoxaparin Sodium 40 MG/0.4 ML SYRINGE SC SCH (09:00)
[2019-10-01] MEDS: Lisinopril 10 MG TAB PO SCH (09:11)
[2019-10-01] MEDS: Aspirin 81 mg Enteric Coated Tablet PO SCH (09:13)
--- NOTE | 2019-10-01 12:02 | EKG ---
Test Reason : Blood Pressure : / mmHG Vent. Rate : 057 BPM Atrial Rate : 057 BPM P-R Int : 176 ms QRS Dur : 070 ms QT Int : 408 ms P-R-T Axes : 073 -07 035 degrees QTc Int : 397 ms Sinus bradycardia Otherwise normal ECG #2 Confirmed by ADY WHITE MD ([id number]), editorial assistant CHRISTIAN TERAN ([id number]) on 10/01/2019 12:01:59 PM Referred By: Confirmed By:ADY WHITE MD
--- NOTE | 2019-10-01 12:02 | EKG ---
Test Reason : Blood Pressure : / mmHG Vent. Rate : 056 BPM Atrial Rate : 056 BPM P-R Int : 166 ms QRS Dur : 080 ms QT Int : 430 ms P-R-T Axes : 075 002 040 degrees QTc Int : 414 ms Sinus bradycardia Otherwise normal ECG Confirmed by ADY WHITE MD ([id number]), avid editor CHRISTIAN TERAN ([id number]) on 10/01/2019 12:01:49 PM Referred By: Confirmed By:ADY WHITE MD
--- NOTE | 2019-10-01 13:44 | CON ---
DATE OF CONSULTATION: 10/01/2019 REQUESTING PHYSICIAN: Michi Varner MD REASON FOR CONSULTATION: Epigastric pain. HISTORY OF PRESENT ILLNESS: Parveen Martin is a 69-year-old man, who was admitted to the hospital a couple of days ago with epigastric pain. He has a history significant for coronary artery disease, a stent placement in the past, cardiac catheterization in June 2019 showed some new stenoses and he is actually scheduled for coronary artery bypass graft coming up on October 17 of this year. That being said, his angina has been stable and he has actually not been having much issue with it in the past few months. Two days ago, he had a fairly sudden onset of pain in the epigastrium. This is similar in character but in a different location from his usual angina pain. He took a single omeprazole and also tried [place] at home, but this gave no relief, so he presented to the hospital. Troponins here are negative. LFTs and lipase are normal. Chest x-ray was also negative. He was evaluated by Dr. Gonzalez of Cardiology, who felt that current pain is noncardiac in origin. The patient was started on Carafate yesterday and actually says that this has provided significant relief. He is actually feeling very well today and is hoping to be discharged from the hospital. Notably, he denies any NSAID use. He says he had an EGD and colonoscopy just 2 years ago at the [facility], which were normal per his recollection. REVIEW OF SYSTEMS: Full review of systems including constitutional, head, eyes, ears, nose, throat, GI, , cardiovascular, respiratory, musculoskeletal, neurologic systems is negative except as noted in the HPI. PAST MEDICAL HISTORY: 1. Coronary artery disease with LAD stent. 2. Appendectomy. 3. Myocardial infarction. 4. Cholecystectomy. 5. Hyperlipidemia. 6. Skin cancer. 7. Peptic ulcer disease in 1970s. 8. EGD and colonoscopy 2 years ago in [place], evidently normal. ALLERGIES: OXYCODONE, NALOXONE, PENTAZOCINE, LATEX, AND NATURAL RUBBER. OUTPATIENT MEDICATIONS: 1. Isosorbide mononitrate. 2. Lisinopril. 3. Lipitor. 4. Aspirin 81 mg daily. 5. Omeprazole 20 mg p.r.n., really has not been taking this recently. SOCIAL HISTORY: He quit smoking 3 months ago. No alcohol or drug use. FAMILY HISTORY: His father had myocardial infarction. PHYSICAL EXAMINATION: VITAL SIGNS: Temperature 98.4, pulse 68, blood pressure 134/73, and oxygen saturation 96% on room air. GENERAL: A 69-year-old man, sitting up at the edge of the bed comfortably, in no distress. MENTAL: Alert and fully oriented. Pleasant, conversational. Can give a detailed coherent history. SKIN: No jaundice. No rashes were palpable. EYES: No scleral icterus. Extraocular movements intact. ENT: Mucous membranes moist. No oral lesions. LYMPH: No submandibular or supraclavicular lymphadenopathy. THYROID: Nontender to palpation. HEART: Regular rate and rhythm. LUNGS: Clear to auscultation bilaterally. ABDOMEN: Bowel sounds present. Soft, nontender to palpation. EXTREMITIES: No peripheral edema. VESSELS: Radial pulses 2+ bilaterally. NEURO: Cranial nerves II through XII intact bilaterally. No focal deficits. LABORATORY STUDIES: WBC 10.5, hemoglobin 14.7, and platelets 200. INR 1.0. Sodium 139, potassium 4.0, BUN 13, creatinine 0.81, and glucose 130. Troponin negative x3. Lipase 14. LFTs all normal with total bilirubin 0.5, alkaline phosphatase 75, AST 24, ALT 34, and albumin 4.3. Urinalysis negative. Chest x-ray shows no acute processes. ASSESSMENT AND PLAN: 1. Epigastric pain, good symptomatic relief with Carafate over the past day here. 2. Prior history of peptic ulcer disease, the patient reports back in the 1970s, but also states that esophagogastroduodenoscopy done 2 years ago was negative. 3. Coronary artery disease. The patient is scheduled for coronary artery bypass graft next month. However, Cardiology here feels that current symptoms are not likely cardiac related. I discussed possibilities for epigastric pain with the patient. The response to Carafate does indeed suggest upper GI mucosal pathology. It is possible he has gastritis or recurrent peptic ulcer disease. On the other hand, there is no evidence of bleeding. He is doing very well today and wants to be discharged from the hospital, but desires further workup as an outpatient. I think this is very reasonable. We will plan to have my office contact him next week to set up a time for outpatient EGD for further investigation. In the meantime, I would recommend continuing on the Carafate 1 g 3 to 4 times per day as well as daily PPI with omeprazole 40 mg daily. No barriers to discharge from the GI perspective. We will follow up with him for outpatient EGD. Job ID: [id number]
[2019-10-01 15:21] VITALS: BP 124/65; TEMP 98.3
--- NOTE | 2019-10-02 21:18 | DIS ---
DATE OF ADMISSION: 09/29/2019 DATE OF DISCHARGE: 10/01/2019 HOSPITAL COURSE: Mr. Martin is a 69-year-old male with medical history of coronary artery disease, pending CABG in October and peptic ulcer disease (nonadherent to proton pump inhibitors), who presents to the hospital with acute epigastric pain. Cardiac workup was negative and based on the patient's description of pain and physical exam, treatment was started for peptic ulcer disease with omeprazole and Carafate. The patient's symptoms improved overnight, and he was discharged hemodynamically stable with addition of Carafate. He was educated regarding the necessity of continuously being treated with omeprazole. During the inpatient stay, he was seen by Gastroenterology Service and will be followed as an outpatient for possible EGD in the near future. The patient was discharged to home hemodynamically stable. Vital signs were unremarkable. PHYSICAL EXAMINATION: GENERAL: He was in no apparent distress. HEART: Regular rate and rhythm. No gallops. No rubs. Normal peripheral pulses. RESPIRATORY: Clear to auscultation bilaterally. No wheezing. No rales. No rhonchi. Normal chest expansion. GASTROINTESTINAL: Mild substernal tenderness, otherwise abdomen was soft, nontender, and nondistended with normal bowel sounds. PSYCHIATRIC: He was alert and oriented x3. ASSESSMENT AND PLAN: This is a 69-year-old male, who presented with epigastric pain due to peptic ulcer disease in the context of medication nonadherence. The patient was educated regarding adherence to pantoprazole and Carafate, pending outpatient followup with GI for possible EGD. Job ID: [id number]
== END 2019-10-01 16:03 | disposition home or self-care (01) | DRG 384 ==
LOC: ERS 08:53 → 2NO 18:13
PROVIDERS: ADMIT Internal Medicine; ATTEND Internal Medicine
DX: K27.9 Peptic ulcer, site unspecified, unspecified as acute or chronic, without hemorrhage or perforation (principal); I25.10 Atherosclerotic heart disease of native coronary artery without angina pectoris; I25.2 Old myocardial infarction; Z95.5 Presence of coronary angioplasty implant and graft; Z90.49 Acquired absence of other specified parts of digestive tract; F17.210 Nicotine dependence, cigarettes, uncomplicated; Z88.5 Allergy status to narcotic agent; Z88.8 Allergy status to other drugs, medicaments and biological substances; E78.5 Hyperlipidemia, unspecified; F41.9 Anxiety disorder, unspecified; G47.00 Insomnia, unspecified
CPT/HCPCS: 36415; 71045; 80048; 80053; 81003; 83690; 84484; 85025; 85610; 85730; 93005; 96372; 96374; 96375; C9113; J1650; J2405

== ENCOUNTER 2019-10-14 13:00 | Inpatient (IN) | payer OTHER ==
[2019-10-14 14:26] LABS: Hemoglobin 15.9 g/dL (14.0-18.0); Mean Corpuscular HGB CONC 34.1 g/dL (32.0-36.0); Mean Corpuscular Hemoglobin 33.8 pg (27.0-31.0); Mean Platelet Volume 8.4 fL (7.4-10.4); Platelet Count 198 thou/uL (130-400); RBC Distribution Width 11.8 % (11.5-14.5); White Blood Cell (WBC) Count 10.4 thou/uL (4.8-10.8)
[2019-10-14 14:31] LABS: PTT 29.2 SEC (22.9-36.1)
[2019-10-14 14:47] LABS: Anion Gap 17 mmol/L (10-20); BUN (Urea Nitrogen) 19 mg/dL (8.4-25.7); Calc. Creatinine Clearance 0 mL/min (70-130); Calcium 9.6 mg/dL (7.8-10.44); Carbon Dioxide 23 mmol/L (23-31); Chloride 106 mmol/L (98-107); Estimated GFR-MDRD Greater than 90; Glucose 131 mg/dL (80-115); Potassium 4.6 mmol/L (3.5-5.1); Sodium 141 mmol/L (136-145)
[2019-10-17] MEDS ORDERED: Albumin 5% 500 ML ONE (06:29)
[2019-10-17] MEDS ORDERED: Dexamethasone 4 mg/ml Vial ONE (06:29)
[2019-10-17] MEDS ORDERED: Bupivacaine PF 0.5% 30 ML VIAL ONE (06:29)
[2019-10-17] MEDS ORDERED: EPINEPHrine 1 MG/ML AMP ONE (06:29)
[2019-10-17] MEDS ORDERED: Fentanyl 100 MCG/2 ML VIAL ONE (06:30)
[2019-10-17] MEDS ORDERED: Midazolam HCl 2 mg/2 ml Vial ONE (06:30)
[2019-10-17] MEDS ORDERED: Midazolam HCl 5 mg/5 ml Vial ONE (06:30)
[2019-10-17] MEDS ORDERED: Dexmedetomidine 200 MCG/2 ML VIAL ONE (06:30)
[2019-10-17] MEDS ORDERED: Vecuronium 10 MG VIAL ONE ×2 (06:30→10:30)
[2019-10-17] MEDS ORDERED: Heparin 10,000 UNITS/1 ML VIAL 30,000 UNITS in Sodium Chloride 0.9% 1,000 ML FS SCH (06:45)
[2019-10-17] MEDS ORDERED: Sodium Chloride 0.9% 10 ML ONE (06:49)
[2019-10-17] MEDS ORDERED: Insulin Regular 300 UNITS/3 ML VIAL ONE (08:07)
[2019-10-17] MEDS ORDERED: Ondansetron PF 4 MG/2 ML Vial ONE (10:30)
[2019-10-17] MEDS ORDERED: Heparin 5,000 UNITS/ML VIAL ONE (10:30)
[2019-10-17] MEDS ORDERED: Sodium Bicarb 50 MEQ/50 ML Abboject 8.4% SYRINGE ONE (10:30)
[2019-10-17] MEDS ORDERED: Potassium Chloride 60 MEQ/30 ML VIAL ONE (10:30)
[2019-10-17] MEDS ORDERED: Ketorolac Tromethamine 30 MG/ML VIAL ONE (10:30)
[2019-10-17] MEDS ORDERED: Lidocaine 1% PF 5 ML VIAL ONE ×2 (10:30)
[2019-10-17] MEDS ORDERED: Nitroglycerin 50 MG/250 ML BOT ONE (10:30)
[2019-10-17] MEDS ORDERED: Aminocaproic Acid 5 GM/20 ML VIAL ONE (10:30)
[2019-10-17] MEDS ORDERED: Papaverine 60 MG/2 ML VIAL ONE (10:30)
[2019-10-17] MEDS ORDERED: Glycopyrrolate 0.2 MG/ML 5 ML SYRINGE ONE (10:30)
[2019-10-17] MEDS ORDERED: Magnesium Sulfate 1 GM/2 ML VIAL ONE (10:30)
[2019-10-17] MEDS ORDERED: Calcium Chloride 1 GM/10 ML Abboject SYRINGE ONE (10:30)
[2019-10-17] MEDS ORDERED: Lidocaine 2% PF 5 ML VIAL ONE (10:30)
[2019-10-17] MEDS ORDERED: Cardioplegic Soln 1,000 ML BAG ONE (10:30)
[2019-10-17] MEDS ORDERED: Heparin 30,000 units/30 ml VIAL ONE (10:30)
[2019-10-17] MEDS ORDERED: PHENYLEPHRINE-NS 100 MCG/ML 10 ML SYRINGE ONE (10:30)
[2019-10-17] MEDS ORDERED: ePHEDrine/0.9% NaCl/PF SYRINGE 50 mg/10 ml ONE (10:30)
[2019-10-17] MEDS ORDERED: Dexamethasone 20 MG/5 ML VIAL ONE (10:30)
[2019-10-17] MEDS ORDERED: Thrombin 5000 UNITS/5 ML VIAL ONE (10:30)
[2019-10-17] MEDS ORDERED: Protamine Sulfate 250 MG/25 ML VIAL ONE (10:30)
[2019-10-17] MEDS ORDERED: Magnesium 2 GM/50 ML 2 GM in Premix Bag 1 BAG IVPB SCH (10:37)
[2019-10-17] MEDS ORDERED: Hetastarch 6% 500 ML 500 ML IVPB PRN (10:37)
[2019-10-17] MEDS ORDERED: Bisacodyl 5 MG TAB PO PRN (10:37)
[2019-10-17] MEDS ORDERED: Potassium Chloride 20 MEQ/100 ML PREMIX BAG IVPB PRN (10:37)
[2019-10-17] MEDS ORDERED: Promethazine HCl 25 MG/ML VIAL IM PRN (10:37)
[2019-10-17] MEDS ORDERED: D5 1/2 NS w/20 mEq KCL 1,000 ML IV SCH (10:37)
[2019-10-17] MEDS ORDERED: Acetaminophen 325 MG TAB PO PRN (10:37)
[2019-10-17] MEDS ORDERED: Norepinephrine 8 MG/0.9% NS 250 ML IVPB PRN (10:37)
[2019-10-17] MEDS ORDERED: Guaifenesin DM 100-10/5 ML UDCUP PO PRN (10:37)
[2019-10-17] MEDS ORDERED: Mag-Al 1200 mg/1200 mg/30 ML UDCUP PO PRN (10:37)
[2019-10-17] MEDS ORDERED: Nitroglycerin 50 MG/250 ML BOT 250 ML IVPB PRN (10:37)
[2019-10-17] MEDS ORDERED: Phenylephrine 10 MG/NS 250 ML 250 ML IVPB PRN (10:37)
[2019-10-17] MEDS ORDERED: hydrALAZINE 20 MG/ML VIAL SLOW IVP PRN (10:37)
[2019-10-17] MEDS ORDERED: Post-Op Insulin Drip Protocol IVPB ONE (10:37)
[2019-10-17] MEDS ORDERED: Ondansetron PF 4 MG/2 ML Vial IVP PRN (10:37)
[2019-10-17] MEDS ORDERED: Bisacodyl 10 MG SUPP PR PRN (10:37)
[2019-10-17] MEDS ORDERED: D5 1/2 NS w/20 mEq KCL 1,000 ML ONE (10:57)
[2019-10-17 11:00] LABS: #Eosinphils 0.2 thou/uL (0.0-0.7); #Lymphocytes 3.1 thou/uL (1.20-3.40); #Monocytes 0.7 thou/uL (0.11-0.59); #Neutrophils 14.8 thou/uL (1.40-6.50); %Basophils 0.1 % (0.0-1.0); %Eosinophils 1.3 % (0.0-10.0); %Lymphocytes 16.4 % (21.0-51.0); %Monocytes 3.6 % (0.0-10.0); %Neutrophils 78.6 % (42.0-75.0); Hemoglobin 13.8 g/dL (14.0-18.0); Mean Corpuscular HGB CONC 34.5 g/dL (32.0-36.0); Mean Corpuscular Hemoglobin 33.6 pg (27.0-31.0); Mean Corpuscular Volume 97.4 fL (78.0-98.0); Mean Platelet Volume 8.1 fL (7.4-10.4); Platelet Count 133 thou/uL (130-400); RBC Distribution Width 11.7 % (11.5-14.5); White Blood Cell (WBC) Count 18.8 thou/uL (4.8-10.8)
[2019-10-17] MEDS ORDERED: HUMULIN R 100 UNITS in Sodium Chloride 0.9% 100 ML IVPB SCH (11:04)
[2019-10-17] MEDS ORDERED: Insulin Regular 300 UNITS/3 ML VIAL SC PRN (11:04)
[2019-10-17] MEDS ORDERED: Dextrose 5% in Water 1,000 ML IV PRN (11:04)
[2019-10-17] MEDS ORDERED: Dextrose 50% Abboject 50 ML SYRINGE SLOW IVP PRN (11:04)
[2019-10-17 11:06] LABS: INR-International Normal Ratio 1.3; Prothrombin Time 15.7 SEC (12.0-14.7)
[2019-10-17 11:07] LABS: PTT 31.9 SEC (22.9-36.1)
[2019-10-17 11:14] LABS: Anion Gap 9 mmol/L (10-20); BUN (Urea Nitrogen) 12 mg/dL (8.4-25.7); Calc. Creatinine Clearance 96 mL/min (70-130); Calcium 7.9 mg/dL (7.8-10.44); Carbon Dioxide 25 mmol/L (23-31); Chloride 110 mmol/L (98-107); Estimated GFR-MDRD Greater than 90; Glucose 113 mg/dL (80-115); Potassium 3.6 mmol/L (3.5-5.1); Sodium 140 mmol/L (136-145)
[2019-10-17] MEDS: Ketorolac Tromethamine 30 MG/ML VIAL IVP SCH ×3 (11:34→23:04)
--- NOTE | 2019-10-17 12:11 | OP ---
DATE OF PROCEDURE: 10/17/2019 PREOPERATIVE DIAGNOSES: Coronary artery disease/hyperlipidemia. POSTOPERATIVE DIAGNOSIS: Coronary artery disease/hyperlipidemia. PROCEDURES PERFORMED: Coronary artery bypass grafting x3: 1. Left internal mammary artery to 1.25 mm mid left anterior descending just distal to the stent, good conduit and small target. 2. Reverse saphenous vein to 1.5 mm posterior descending area, good conduit and target. 3. Reverse saphenous vein to 1.5 mm posterolateral branch, good conduit and target. PARTNERSHIP MARKETING MANAGER SURGEONS: 1. Humza Siddiqi MD. 2. Nathaniel Parkinson MD. ANESTHESIA: General endotracheal. ANESTHESIOLOGIST: Ameya Haynes MD. PUMP TIME: 47 minutes. CROSSCLAMP TIME: 25 minutes. LOW-CORE TEMPERATURE: 34 degrees Celsius. BACKEND PYTHON DEVELOPER: Kim Solares. DRAINS: 24-[place] chest tubes x2. DRIPS: None. TRANSFUSIONS: None. DESCRIPTION OF PROCEDURE: After consent was obtained, the patient was brought to the operating room, placed in supine position on the operating room table. Appropriate central line and monitors were placed and general endotracheal anesthesia was induced. Chest, abdomen, and legs were prepped and draped in the usual sterile fashion. Greater saphenous vein was harvested from the left lower extremity utilizing an endoscopic technique. Wounds were irrigated and closed in layers. Median sternotomy was performed. Left internal mammary artery was harvested as a pedicle graft. The patient was systemically heparinized. Distal pedicle was divided and infused with papaverine. Thymic fat and pericardium were divided with electrocautery. Pericardial stay sutures were placed. Aortic and atrial cannulation was performed. After adequate heparinization, retrograde prime was performed. The patient was placed on cardiopulmonary bypass. Distal targets were marked. Aortic cross-clamp was applied and antegrade sanguineous cardioplegic arrest was obtained. 1 L of antegrade cold [place] cardioplegia was given. Topical cold solution was used. Reverse saphenous vein was anastomosed to the PDA in an end-to-side fashion with running 7-0 Prolene suture. Anastomosis was tested and was hemostatic. Reverse saphenous vein was anastomosed to PL branch in an end-to-side fashion with running 7-0 Prolene suture. Mammary artery was brought through a window in the pericardium and anastomosed to the LAD in an end-to-side fashion with running 7-0 Prolene suture. On release of mammary clamps, good hooding of the anastomosis and good distal flow. Pedicle was secured with interrupted 6-0 Prolene suture. Cross-clamp was removed and partial occluding clamp placed. Saphenous vein to the PL branch was anastomosed to the aortic root. Saphenous vein to the PDA was anastomosed to the sidewall of the PL branch graft. Partial occluding clamp was removed and graft was deaired. Anastomoses were inspected for hemostasis, which was good. The patient was warmed and weaned from cardiopulmonary bypass. After resumption of sinus rhythm, good hemodynamics, temperature greater than 36.5, bypass was discontinued. Transfusions were given. 24-[place]rainian chest tubes were placed in mediastinum. Again, hemostasis was ensured in the mediastinum. Sternum was closed with #7 wire. Sternum was treated with platelet-rich plasma. Wires were twisted and buried. Wounds were irrigated and treated with platelet-poor plasma and closed in multiple layers. Needle, sponge, and instrument counts were all reported as correct at the end of the procedure. The patient tolerated the procedure well. He was awakened, extubated, and transferred to the intensive care unit in stable condition. Job ID: [id number]
--- NOTE | 2019-10-17 12:31 | RAD ---
CHEST 1 VIEW: Date: 10/17/2019 HISTORY: Postop open heart. COMPARISON: 10/14/2019. FINDINGS: Recent midline sternotomy and coronary artery bypass. Right subclavian catheter. Monitor leads overli e the chest. Heart size is within normal limits. No confluent pneumonia, overt edema, or pleural effu elo. Probable very tiny left apical pneumothorax. IMPRESSION: Probable very tiny left apical pneumothorax. No other significant acute process. POS: TPC
[2019-10-17] MEDS: Morphine 2 MG/ML SYRINGE SLOW IVP PRN ×2 (12:40→20:04)
[2019-10-17] MEDS: Sucralfate 1 GM TAB PO SCH ×3 (14:38→20:33)
[2019-10-17] MEDS: traMADol HCl 50 MG TAB PO PRN (14:38)
[2019-10-17] MEDS: CEFAZOLIN 2 GM in Premix Bag 1 BAG IVPB SCH ×2 (14:40→22:06)
[2019-10-17 16:26] LABS: Hemoglobin 13.4 g/dL (14.0-18.0)
[2019-10-17] MEDS: Fentanyl 100 MCG/2 ML VIAL SLOW IVP PRN (16:27)
[2019-10-17 16:48] LABS: Potassium 3.8 mmol/L (3.5-5.1)
[2019-10-17] MEDS: Atorvastatin Calcium 40 MG TAB PO SCH (20:33)
[2019-10-18] MEDS: Fentanyl 100 MCG/2 ML VIAL SLOW IVP PRN ×6 (02:17→22:51)
[2019-10-18 03:54] LABS: #Lymphocytes 2.2 thou/uL (1.20-3.40); #Monocytes 1.2 thou/uL (0.11-0.59); #Neutrophils 14.6 thou/uL (1.40-6.50); %Basophils 0.2 % (0.0-1.0); %Monocytes 6.8 % (0.0-10.0); %Neutrophils 80.9 % (42.0-75.0); Hemoglobin 11.5 g/dL (14.0-18.0); Mean Corpuscular HGB CONC 34.1 g/dL (32.0-36.0); Mean Corpuscular Hemoglobin 33.6 pg (27.0-31.0); Mean Corpuscular Volume 98.7 fL (78.0-98.0); Mean Platelet Volume 8.4 fL (7.4-10.4); Platelet Count 132 thou/uL (130-400); Red Blood Cell (RBC) Count 3.43 mill/uL (4.70-6.10); White Blood Cell (WBC) Count 18.1 thou/uL (4.8-10.8)
[2019-10-18] MEDS: traMADol HCl 50 MG TAB PO PRN ×3 (04:11→20:32)
[2019-10-18 04:17] LABS: Anion Gap 9 mmol/L (10-20); BUN (Urea Nitrogen) 9 mg/dL (8.4-25.7); Calc. Creatinine Clearance 96 mL/min (70-130); Calcium 8.2 mg/dL (7.8-10.44); Carbon Dioxide 23 mmol/L (23-31); Chloride 112 mmol/L (98-107); Estimated GFR-MDRD Greater than 90; Glucose 109 mg/dL (80-115); Sodium 140 mmol/L (136-145)
[2019-10-18] MEDS: CEFAZOLIN 2 GM in Premix Bag 1 BAG IVPB SCH (05:21)
[2019-10-18] MEDS: Ketorolac Tromethamine 30 MG/ML VIAL IVP SCH ×3 (05:22→17:52)
[2019-10-18] MEDS: Magnesium 2 GM/50 ML 2 GM in Premix Bag 1 BAG IVPB SCH (08:33)
[2019-10-18] MEDS: Aspirin 325 MG TAB PO SCH ×2 (08:33→08:34)
[2019-10-18] MEDS: Sucralfate 1 GM TAB PO SCH ×4 (08:34→20:32)
--- NOTE | 2019-10-18 08:34 | RAD ---
CHEST 1 VIEW PORTABLE: HISTORY: Postop open heart. COMPARISON: 10/17/2019. FINDINGS: Mild bilateral vascular congestion. Less inspiration than on the prior study. Minimal pleural and p arenchymal changes in the left base. Right central line. Midline chest tubes. IMPRESSION: Less inspiration with mild congestion and minimal increased markings in the bases. No significant ne w process. Previously noted tiny apical pneumothorax is no longer demonstrated. POS: TPC
[2019-10-18] MEDS ORDERED: Prevnar 13-Val Conj/PF 0.5 ML SYRINGE IM ONE (09:00)
--- NOTE | 2019-10-18 11:50 | PRG ---
DATE OF SERVICE: 10/18/2019 SUBJECTIVE: Mr. Martin is awake and alert, sitting up in the chair, feels well. He does complain of some sore throat. OBJECTIVE: VITAL SIGNS: Blood pressure 102/60, pulse is 72 and it is regular. LUNGS: Clear. CARDIAC: Normal S1, normal S2. ABDOMEN: Soft, nontender. EXTREMITIES: No edema. THROAT: Looking at the throat, there are some areas of inflammation in the throat, probably has some throat infection as well. He is on antibiotics. ASSESSMENT: Status post bypass surgery, doing well. PLAN: 1. He is on aspirin. 2. back on statins. 3. We will continue to follow with you. Job ID: [id number]
[2019-10-18] MEDS ORDERED: Amiodarone 450 MG in Dextrose 5% in Water 250 ML IVPB SCH (18:30)
[2019-10-18] MEDS: Atorvastatin Calcium 40 MG TAB PO SCH (20:32)
[2019-10-19] MEDS: Ketorolac Tromethamine 30 MG/ML VIAL IVP SCH ×4 (00:04→17:27)
[2019-10-19] MEDS: traMADol HCl 50 MG TAB PO PRN ×4 (04:08→21:48)
[2019-10-19 04:11] LABS: Anion Gap 7 mmol/L (10-20); BUN (Urea Nitrogen) 15 mg/dL (8.4-25.7); Calc. Creatinine Clearance 93 mL/min (70-130); Calcium 7.8 mg/dL (7.8-10.44); Carbon Dioxide 25 mmol/L (23-31); Chloride 106 mmol/L (98-107); Estimated GFR-MDRD Greater than 90; Glucose 145 mg/dL (80-115); Potassium 3.9 mmol/L (3.5-5.1); Sodium 134 mmol/L (136-145)
[2019-10-19 04:20] LABS: #Basophils 0.1 thou/uL (0.0-0.2); #Eosinphils 0.1 thou/uL (0.0-0.7); #Lymphocytes 4.6 thou/uL (1.20-3.40); #Monocytes 0.9 thou/uL (0.11-0.59); #Neutrophils 7.8 thou/uL (1.40-6.50); %Basophils 0.5 % (0.0-1.0); %Eosinophils 0.8 % (0.0-10.0); %Lymphocytes 34.2 % (21.0-51.0); %Monocytes 6.8 % (0.0-10.0); %Neutrophils 57.7 % (42.0-75.0); Hemoglobin 10.9 g/dL (14.0-18.0); Mean Corpuscular HGB CONC 33.4 g/dL (32.0-36.0); Mean Corpuscular Hemoglobin 33.3 pg (27.0-31.0); Mean Corpuscular Volume 99.6 fL (78.0-98.0); Mean Platelet Volume 8.6 fL (7.4-10.4); Platelet Count 119 thou/uL (130-400); Platelet Morphology Comment Appears Decreased; RBC Distribution Width 12.1 % (11.5-14.5); RBC Morphology Normal; Red Blood Cell (RBC) Count 3.27 mill/uL (4.70-6.10); White Blood Cell (WBC) Count 13.6 thou/uL (4.8-10.8)
[2019-10-19] MEDS: Magnesium 2 GM/50 ML 2 GM in Premix Bag 1 BAG IVPB SCH (07:52)
--- NOTE | 2019-10-19 08:42 | RAD ---
PORTABLE CHEST: HISTORY: Respiratory distress. COMPARISON: 10/18/2019 exam. FINDINGS: Heart size is enlarged. Postop sternotomy changes are noted. Pulmonary vessels remain engorged. In creased markings in the lung bases suggest atelectasis. There could be associated effusions. A righ t subclavian line is present. IMPRESSION: Cardiomegaly with mild vascular engorgement and some slightly increased density in the bases probably related to atelectasis, possibly underlying effusions are present. POS: TPC
--- NOTE | 2019-10-19 09:16 | PRG ---
DATE OF SERVICE: 10/19/2019 SUBJECTIVE: Mr. Martin is up, sitting in a chair. Feels well. No complaints. OBJECTIVE: VITAL SIGNS: His blood pressure is 108/57, pulse is 70 and sinus. LUNGS: Clear. CARDIAC: Normal S1, normal S2. ABDOMEN: Soft and nontender. EXTREMITIES: No clubbing, no cyanosis. There is no edema. ASSESSMENT: Status post bypass surgery, doing well. Continue current regimen. PLAN: The patient was previously on amiodarone, did have some atrial fibrillation last night, back in sinus this morning. Job ID: [id number]
[2019-10-19] MEDS ORDERED: Bisacodyl 5 MG TAB PO PRN (10:07)
[2019-10-19] MEDS ORDERED: Mineral Oil ENEMA PR PRN (10:07)
[2019-10-19] MEDS ORDERED: Guaifenesin DM 100-10/5 ML UDCUP PO PRN (10:07)
[2019-10-19] MEDS ORDERED: Zolpidem Tartrate 5 MG TAB PO PRN (10:07)
[2019-10-19] MEDS ORDERED: Nitroglycerin 0.4 MG TAB (25 Tab Bottle) SL PRN (10:07)
[2019-10-19] MEDS ORDERED: Bisacodyl 10 MG SUPP PR PRN (10:07)
[2019-10-19] MEDS ORDERED: Milk Of Magnesia 30 ML UDCUP PO PRN (10:07)
[2019-10-19] MEDS ORDERED: Mag-Al 1200 mg/1200 mg/30 ML UDCUP PO PRN (10:07)
[2019-10-19] MEDS ORDERED: diphenhydrAMINE 25 MG CAP PO PRN (10:07)
[2019-10-19] MEDS ORDERED: Artificial Tears 18 DROP/0.9 ML EA EYE PRN (10:07)
[2019-10-19] MEDS: Aspirin 325 MG TAB PO SCH (11:47)
[2019-10-19] MEDS: Sucralfate 1 GM TAB PO SCH ×3 (11:48→21:48)
[2019-10-19] MEDS: Atorvastatin Calcium 40 MG TAB PO SCH (21:48)
[2019-10-20] MEDS: Ketorolac Tromethamine 30 MG/ML VIAL IVP SCH ×3 (00:29→11:34)
[2019-10-20 08:18] VITALS: BMI 25.9
[2019-10-20] MEDS: Aspirin 325 MG TAB PO SCH (08:29)
[2019-10-20] MEDS: Furosemide 40 MG TAB PO SCH (08:29)
[2019-10-20] MEDS: Sucralfate 1 GM TAB PO SCH ×4 (08:29→20:18)
[2019-10-20] MEDS: Potassium Chloride 10 MEQ TAB PO SCH (08:29)
[2019-10-20] MEDS ORDERED: Magnesium Citrate 300 ML BOT PO PRN (08:32)
[2019-10-20] MEDS ORDERED: Metolazone 5 MG TAB PO SCH (08:45)
--- NOTE | 2019-10-20 09:24 | PRG ---
DATE OF SERVICE: 10/20/2019 SUBJECTIVE: Mr. Martin is out of the telemetry area now, feeling well, has been up in the halls, feeling well. His only complaint is constipation. No chest pain or pressure. OBJECTIVE: VITAL SIGNS: Blood pressure 130/60; pulse 90 and it is sinus, recorded earlier, but at times, his heart rate is 60. LUNGS: Clear. CARDIAC: Normal S1 and normal S2. ABDOMEN: Soft and nontender. EXTREMITIES: There is no edema. ASSESSMENT: 1. Status post bypass surgery, doing well. 2. Constipation. PLAN: Continue current medical regimen. No changes. Job ID: [id number]
[2019-10-20] MEDS: Carvedilol 3.125 MG TAB PO SCH (17:48)
[2019-10-20] MEDS: Atorvastatin Calcium 40 MG TAB PO SCH (20:18)
[2019-10-21] MEDS: traMADol HCl 50 MG TAB PO PRN (01:45)
[2019-10-21 04:12] VITALS: TEMP 99
--- NOTE | 2019-10-21 07:09 | DIS ---
DATE OF ADMISSION: 10/17/2019 DATE OF DISCHARGE: 10/21/2019 DIAGNOSES: 1. Coronary artery disease. 2. History of tobacco abuse in the past. 3. Hypertension. 4. Dyslipidemia. PROCEDURES PERFORMED: Coronary artery bypass grafting x3; 1. Left internal mammary to left anterior descending. 2. Reverse saphenous vein to posterior descending artery. 3. Reverse saphenous vein to posterolateral branch. DESCRIPTION OF HOSPITAL STAY: Mr. Martin is a 69-year-old gentleman, who was electively admitted for coronary artery bypass grafting as above. He has done well postoperatively. He has had no rhythm issues. At the time of discharge, he is ambulatory, tolerating regular diet, having good bowel and bladder function. Incisions are clean and dry without evidence of infection. DISCHARGE MEDICATIONS: Include: 1. Aspirin 325 mg daily. 2. Lipitor 40 mg at bedtime. 3. Coreg 3.125 mg b.i.d. 4. Lasix 40 mg daily for 10 days. 5. Potassium 10 mEq daily for 10 days. 6. Protonix 40 mg daily. 7. Carafate 1 g at bedtime. 8. Ultram 50 mg q.6 p.r.n. FOLLOWUP: Follow up is with me in 2 weeks, Dr. Gonzalez in a month. Job ID: [id number]
[2019-10-21] MEDS: Sucralfate 1 GM TAB PO SCH ×2 (07:44→11:19)
[2019-10-21] MEDS: Potassium Chloride 10 MEQ TAB PO SCH (09:44)
[2019-10-21] MEDS: Aspirin 325 MG TAB PO SCH (09:44)
[2019-10-21] MEDS: Furosemide 40 MG TAB PO SCH (09:44)
[2019-10-21] MEDS: Carvedilol 3.125 MG TAB PO SCH (09:44)
[2019-10-21 11:18] VITALS: BP 103/58
== END 2019-10-21 11:24 | disposition home or self-care (01) | DRG 236 ==
LOC: SURG A 10-17 05:27 → CCU 10-17 09:15 → 2NO 10-20 07:53
PROVIDERS: ADMIT Thoracic Surgery (Cardiothoracic Vascular Surgery); ATTEND Thoracic Surgery (Cardiothoracic Vascular Surgery)
PROC: 02100Z9 Bypass Coronary Artery, One Artery from Left Internal Mammary, Open Approach (ICD-10-PCS; principal; 2019-10-17)
PROC: 021109W Bypass Coronary Artery, Two Arteries from Aorta with Autologous Venous Tissue, Open Approach (ICD-10-PCS; 2019-10-17)
PROC: 06BQ4ZZ Excision of Left Saphenous Vein, Percutaneous Endoscopic Approach (ICD-10-PCS; 2019-10-17)
PROC: 5A1221Z Performance of Cardiac Output, Continuous (ICD-10-PCS; 2019-10-17)
DX: I25.10 Atherosclerotic heart disease of native coronary artery without angina pectoris (principal); E78.2 Mixed hyperlipidemia; B19.20 Unspecified viral hepatitis C without hepatic coma; I48.91 Unspecified atrial fibrillation; J02.9 Acute pharyngitis, unspecified; I10 Essential (primary) hypertension; K59.00 Constipation, unspecified; Z90.49 Acquired absence of other specified parts of digestive tract; Z88.8 Allergy status to other drugs, medicaments and biological substances; Z91.040 Latex allergy status; Z87.891 Personal history of nicotine dependence; Z79.82 Long term (current) use of aspirin
CPT/HCPCS: 36416; 36430; 71045; 71046; 80048; 82947; 85025; 85027; 85610; 85730; 86850; 86900; 86901; 93005; 93010; 93798; 94640; J0171; J0690; J1100; J1642; J1644; J1815; J1885; J2001; J2250; J2270; J2405; J2440; J2550; J2720; J3010; J3370; J3475; J3480; J7620; P9045; Q0163; S0017; S0020

== ENCOUNTER 2019-10-14 13:29 | Outpatient (CLI) | payer OTHER ==
--- NOTE | 2019-10-14 14:14 | RAD ---
2 view chest: [10/14/2019] Comparison:06/25/2019, 09/29/2019 HISTORY: Preoperative patient FINDINGS: Heart and mediastinal contours are grossly unremarkable. No pneumothorax or pleural fluid. No focal consolidation or alveolar edema. Mild increased linear interstitial density with pulmonary hyperinflation. IMPRESSION: No acute findings.
--- NOTE | 2019-10-17 00:19 | EKG ---
Test Reason : Blood Pressure : / mmHG Vent. Rate : 078 BPM Atrial Rate : 078 BPM P-R Int : 168 ms QRS Dur : 078 ms QT Int : 376 ms P-R-T Axes : 080 015 045 degrees QTc Int : 428 ms Normal sinus rhythm Normal ECG When compared with ECG of 29-SEP-2019 10:44, Nonspecific T wave abnormality now evident in Lateral leads Confirmed by Turner BROWN ([id number]) on 10/17/2019 12:19:07 AM Referred By: LUÍS Confirmed By:Turner BROWN
== END 2019-10-14 13:30 | disposition home or self-care (01) ==
LOC: LABBT 13:29
PROVIDERS: ATTEND Thoracic Surgery (Cardiothoracic Vascular Surgery)
DX: Z01.818 Encounter for other preprocedural examination (principal); I25.10 Atherosclerotic heart disease of native coronary artery without angina pectoris
CPT/HCPCS: 71046; 93005; 93010

== ENCOUNTER 2022-11-06 20:53 | Inpatient (IN) | payer OTHER ==
[2022-11-06 21:50] LABS: INR-International Normal Ratio 1.1; Prothrombin Time 14.3 sec (12.0-14.7)
[2022-11-06] MEDS ORDERED: HYDROmorphone 0.5 MG/0.5 ML SYRINGE ONE (22:26)
[2022-11-06] MEDS ORDERED: Nitroglycerin 0.4 MG TAB (25 Tab Bottle) SL PRN (22:39)
[2022-11-06] MEDS ORDERED: Heparin 10,000 UNITS/ 10 ML VIAL SLOW IVP SCH (22:45)
[2022-11-06] MEDS ORDERED: Heparin 25,000 units/D5W 500 ML IVPB SCH (22:45)
[2022-11-06] MEDS ORDERED: Senokot S 8.6-50 MG TAB PO PRN (23:10)
[2022-11-06] MEDS ORDERED: Ondansetron ODT 4 MG TAB PO PRN (23:10)
[2022-11-06] MEDS ORDERED: Acetaminophen 325 MG TAB PO PRN (23:10)
[2022-11-06] MEDS ORDERED: Ondansetron PF 4 MG/2 ML Vial IVP PRN (23:10)
[2022-11-06 23:38] LABS: SARS-CoV-2 NAA Rapid Test Not Detected (NotDetected)
[2022-11-06 23:49] VITALS: BMI 23.3
[2022-11-07] MEDS: Nicotine 14 MG PATCH TD SCH (00:06)
[2022-11-07 01:07] LABS: Hemoglobin 14.5 g/dL (14.0-18.0); Platelet Count 200 10x3/uL (130-400)
[2022-11-07 01:32] LABS: Troponin I 16.346 ng/mL (< 0.028)
[2022-11-07 04:07] LABS: #Basophils 0.1 thou/uL (0.0-0.2); #Eosinphils 0.6 thou/uL (0.0-0.7); #Lymphocytes 5.2 thou/uL (1.20-3.40); #Monocytes 0.7 thou/uL (0.11-0.59); %Basophils 0.7 % (0.0-1.0); %Eosinophils 4.4 % (0.0-10.0); %Lymphocytes 41.2 % (21.0-51.0); %Monocytes 5.7 % (0.0-10.0); %Neutrophils 47.9 % (42.0-75.0); Hemoglobin 14.5 g/dL (14.0-18.0); Mean Corpuscular HGB CONC 34.1 g/dL (32.0-36.0); Mean Corpuscular Volume 99.7 fl (78.0-98.0); Mean Platelet Volume 8.7 fL (7.4-10.4); Platelet Count 184 10x3/uL (130-400); RBC Distribution Width 11.8 % (11.5-14.5); Red Blood Cell (RBC) Count 4.27 mill/uL (4.70-6.10); White Blood Cell (WBC) Count 12.5 10x3/uL (4.8-10.8)
[2022-11-07 04:24] LABS: Anion Gap 13 mmol/L (10-20); BUN (Urea Nitrogen) 14 mg/dL (8.4-25.7); Calc. Creatinine Clearance 82 mL/min (70-130); Calcium 8.9 mg/dL (7.8-10.44); Carbon Dioxide 23 mmol/L (23-31); Cardiac Risk 6.8 (Less than 4.5); Chloride 105 mmol/L (98-107); Cholesterol 191 mg/dl (< 200 Desired); Estimated GFR 95; Glucose 156 mg/dL (83-110); HDL Cholesterol 28 mg/dL (>60 Neg Risk); LDL Cholesterol, Calculated 139 mg/dL; Potassium 3.7 mmol/L (3.5-5.1); Sodium 137 mmol/L (136-145); Triglycerides 122 mg/dL (Less than 150)
[2022-11-07] MEDS: Carvedilol 3.125 MG TAB PO SCH ×2 (07:44→17:49)
[2022-11-07] MEDS: Furosemide 40 MG TAB PO SCH (07:45)
[2022-11-07] MEDS ORDERED: FLU VACC QS2022-23(65YR UP)/PF 240 MCG/0.7 ML SYRINGE IM ONE (09:00)
[2022-11-07] MEDS ORDERED: Aspirin 81 mg Enteric Coated Tablet PO SCH (09:45)
[2022-11-07] MEDS ORDERED: Clopidogrel Bisulfate 300 MG TAB PO SCH (09:45)
[2022-11-07] MEDS: Sucralfate 1 GM TAB PO SCH ×4 (10:07→21:53)
[2022-11-07 10:45] LABS: Troponin I 14.357 ng/mL (< 0.028)
[2022-11-07] MEDS ORDERED: Atorvastatin Calcium 40 MG TAB PO SCH (21:00)
[2022-11-07] MEDS: Temazepam 15 MG CAP PO PRN (21:52)
[2022-11-07] MEDS: Rosuvastatin 20 MG TAB PO SCH (21:53)
[2022-11-08] MEDS: Nicotine 14 MG PATCH TD SCH (00:14)
[2022-11-08 04:19] LABS: #Basophils 0.1 thou/uL (0.0-0.2); #Eosinphils 0.5 thou/uL (0.0-0.7); #Lymphocytes 4.2 thou/uL (1.20-3.40); #Monocytes 0.7 thou/uL (0.11-0.59); #Neutrophils 5.1 thou/uL (1.40-6.50); %Basophils 1.2 % (0.0-1.0); %Eosinophils 4.6 % (0.0-10.0); %Lymphocytes 39.5 % (21.0-51.0); %Monocytes 6.7 % (0.0-10.0); Hemoglobin 16.5 g/dL (14.0-18.0); Mean Corpuscular HGB CONC 35.9 g/dL (32.0-36.0); Mean Corpuscular Hemoglobin 36.1 pg (27.0-31.0); Mean Platelet Volume 8.4 fL (7.4-10.4); Platelet Count 198 10x3/uL (130-400); RBC Distribution Width 11.7 % (11.5-14.5); Red Blood Cell (RBC) Count 4.58 mill/uL (4.70-6.10); White Blood Cell (WBC) Count 10.6 10x3/uL (4.8-10.8)
[2022-11-08 04:39] LABS: Anion Gap 14 mmol/L (10-20); BUN (Urea Nitrogen) 13 mg/dL (8.4-25.7); Calc. Creatinine Clearance 83 mL/min (70-130); Calcium 9.4 mg/dL (7.8-10.44); Carbon Dioxide 21 mmol/L (23-31); Chloride 104 mmol/L (98-107); Estimated GFR 95; Glucose 160 mg/dL (83-110); Potassium 3.3 mmol/L (3.5-5.1); Sodium 136 mmol/L (136-145)
[2022-11-08] MEDS: Aspirin 81 mg Enteric Coated Tablet PO SCH (07:35)
[2022-11-08] MEDS: Sucralfate 1 GM TAB PO SCH ×2 (07:35→11:35)
[2022-11-08] MEDS: Furosemide 40 MG TAB PO SCH ×2 (07:35→11:26)
[2022-11-08] MEDS: Clopidogrel Bisulfate 75 MG TAB PO SCH (07:35)
[2022-11-08] MEDS: Carvedilol 3.125 MG TAB PO SCH ×2 (07:35→17:10)
[2022-11-08] MEDS ORDERED: Electrolyte Replacement Protocol 1 EACH FS SCH (08:00)
[2022-11-08] MEDS ORDERED: Potassium Chloride 20 MEQ TAB PO SCH (08:00)
[2022-11-08 08:15] LABS: Magnesium 1.9 mg/dL (1.6-2.6)
[2022-11-08] MEDS ORDERED: Aspirin Chewable 81 MG TAB PO SCH (09:00)
[2022-11-08] MEDS ORDERED: Magnesium 2 GM/50 ML(in water) 2 GM in Premix Bag 1 BAG IVPB SCH (10:00)
[2022-11-08] MEDS: Rosuvastatin 20 MG TAB PO SCH (20:45)
[2022-11-08] MEDS: Temazepam 15 MG CAP PO PRN (20:45)
[2022-11-09] MEDS ORDERED: Nicotine 14 MG PATCH TD PRN (01:00)
[2022-11-09 05:18] LABS: #Basophils 0.1 thou/uL (0.0-0.2); #Eosinphils 0.4 thou/uL (0.0-0.7); #Lymphocytes 3.9 thou/uL (1.20-3.40); #Monocytes 0.6 thou/uL (0.11-0.59); %Basophils 1.3 % (0.0-1.0); %Eosinophils 4.9 % (0.0-10.0); %Lymphocytes 43.1 % (21.0-51.0); %Monocytes 6.5 % (0.0-10.0); %Neutrophils 44.2 % (42.0-75.0); Hemoglobin 16.5 g/dL (14.0-18.0); Mean Corpuscular HGB CONC 34.4 g/dL (32.0-36.0); Mean Corpuscular Hemoglobin 34.2 pg (27.0-31.0); Mean Corpuscular Volume 99.6 fl (78.0-98.0); Mean Platelet Volume 8.7 fL (7.4-10.4); Platelet Count 200 10x3/uL (130-400); RBC Distribution Width 11.8 % (11.5-14.5); Red Blood Cell (RBC) Count 4.83 mill/uL (4.70-6.10)
[2022-11-09 05:46] LABS: Anion Gap 16 mmol/L (10-20); BUN (Urea Nitrogen) 15 mg/dL (8.4-25.7); Calc. Creatinine Clearance 75 mL/min (70-130); Calcium 9.4 mg/dL (7.8-10.44); Carbon Dioxide 16 mmol/L (23-31); Chloride 107 mmol/L (98-107); Estimated GFR 94; Glucose 144 mg/dL (83-110); Magnesium 2.3 mg/dL (1.6-2.6); Sodium 135 mmol/L (136-145)
[2022-11-09 07:39] VITALS: TEMP 97.7
[2022-11-09] MEDS ORDERED: Multivit, Therapeutic 1 TAB PO SCH (09:00)
[2022-11-09] MEDS: Carvedilol 3.125 MG TAB PO SCH (09:44)
[2022-11-09] MEDS: Aspirin 81 mg Enteric Coated Tablet PO SCH (09:44)
[2022-11-09] MEDS: Clopidogrel Bisulfate 75 MG TAB PO SCH (09:44)
[2022-11-09 13:21] VITALS: BP 133/71
== END 2022-11-09 15:25 | disposition home or self-care (01) | DRG 281 ==
LOC: ERS 20:53 → CCU 21:54 → 2NO 11-08 15:55
PROVIDERS: ADMIT Student in an Organized Health Care Education/Training Program; ATTEND Internal Medicine
DX: I21.4 Non-ST elevation (NSTEMI) myocardial infarction (principal); E87.1 Hypo-osmolality and hyponatremia; E87.6 Hypokalemia; F17.210 Nicotine dependence, cigarettes, uncomplicated; E78.00 Pure hypercholesterolemia, unspecified; E83.42 Hypomagnesemia; K21.9 Gastro-esophageal reflux disease without esophagitis; I25.110 Atherosclerotic heart disease of native coronary artery with unstable angina pectoris; Z20.822 Contact with and (suspected) exposure to COVID-19; Z91.14 Patient's other noncompliance with medication regimen; Z79.82 Long term (current) use of aspirin; Z79.02 Long term (current) use of antithrombotics/antiplatelets; Z79.899 Other long term (current) drug therapy; Z91.040 Latex allergy status; Z88.6 Allergy status to analgesic agent; Z88.8 Allergy status to other drugs, medicaments and biological substances; Z95.5 Presence of coronary angioplasty implant and graft; I25.2 Old myocardial infarction; Z95.1 Presence of aortocoronary bypass graft; Z82.49 Family history of ischemic heart disease and other diseases of the circulatory system; Z90.49 Acquired absence of other specified parts of digestive tract; Z71.6 Tobacco abuse counseling
CPT/HCPCS: 36415; 36416; 80048; 80061; 82553; 83735; 84484; 85025; 85730; 93005; 93010; 93306; 96374; 96375; J1170; J1644; J1650; J3475; U0002